=== PATIENT | female | born 1935 | race Caucasian/White ===

== ENCOUNTER 2017-08-02 09:09 | Inpatient (IN) | payer MEDICARE, MEDICAID ==
[~2017-08-02] VITALS: Ht 137.2 cm; Wt 54.0 kg
[2017-08-02] MEDS ORDERED: SODIUM CHLORIDE 0.9% 1,000 ML IV ONE (09:26)
[2017-08-02 09:56] LABS: BASOPHILS % 1.1 % (0.0-2.0); EOSINOPHILS % 4.4 % (0.0-5.0); HEMATOCRIT. 39.2 % (36.0-48.0); HEMOGLOBIN. 12.8 g/dL (12.0-16.0); LYMPHOCYTES % 23.6 % (20.0-50.0); MEAN CORPUSCULAR HEMOGLOBIN 30.4 pg (28.0-32.0); MEAN CORPUSCULAR VOLUME 93.5 fL (81.0-99.0); MONOCYTES % 9.9 % (2.0-8.0); PLATELET 325 x1000/uL (130-400); RED CELL DISTRIBUTION WIDTH 13.8 % (11.6-14.6)
[2017-08-02 10:00] LABS: INR 1.1; PROTHROMBIN TIME 11.3 sec (9.4-11.6)
[2017-08-02 10:06] LABS: AMMONIA 28 uMol/L (<32)
[2017-08-02 10:10] LABS: CARBON DIOXIDE 25 mEq/L (21-32); CHLORIDE 105 mEq/L (98-107); ETHANOL BLOOD < 10 mg/dL; TROPONIN I < 0.02 ng/mL (0.00-0.04)
[2017-08-02 10:19] LABS: CLARITY URINE CLEAR (CLEAR); COLOR URINE DARK YELLOW (YELLOW); GLUCOSE URINE NEGATIVE (NEGATIVE); KETONES URINE TRACE (NEGATIVE); LEUKOCYTE ESTERASE URINE 2+ (NEGATIVE); NITRITE URINE NEGATIVE (NEGATIVE); OCCULT BLOOD URINE NEGATIVE (NEGATIVE); PROTEIN URINE NEGATIVE (NEGATIVE); SPECIFIC GRAVITY URINE 1.027 (1.005-1.030); UROBILINOGEN URINE 0.2 E.U./dL (0.2-1.0)
[2017-08-02] MEDS ORDERED: CEFTRIAXONE 1 G PREMIX 50 ML IV ONE (10:45)
[2017-08-02 10:55] LABS: *AMPHETAMINES SCREEN URINE NEGATIVE (NEGATIVE); *BARBITURATES SCREEN URINE NEGATIVE (NEGATIVE); *BENZODIAZEPINES SCREEN URINE PRESUMTIVE POSITIVE (NEGATIVE); *COCAINE SCREEN URINE NEGATIVE (NEGATIVE); CANNABINOID URINE SCREEN NEGATIVE (NEGATIVE); METHADONE URINE SCREEN NEGATIVE (NEGATIVE); OPIATES URINE SCREEN PRESUMTIVE POSITIVE (NEGATIVE); PHENCYCLIDINE URINE SCREEN NEGATIVE (NEGATIVE)
[2017-08-02 13:45] VITALS: BP 139/65
[2017-08-02 14:28] VITALS: BP 134/74
[2017-08-02] MEDS: ASPIRIN 81MG TABLET PO SCH (15:04)
[2017-08-02] MEDS ORDERED: LORA1TAB PO (15:32)
[2017-08-02] MEDS ORDERED: SERT25TA74 PO (15:32)
[2017-08-02] MEDS ORDERED: PANT40TA4 PO (15:32)
[2017-08-02] MEDS ORDERED: [UNRECOGNIZED DRUG - CODE] PO (15:32)
[2017-08-02] MEDS ORDERED: DONE5TAB33 PO (15:32)
[2017-08-02] MEDS ORDERED: DIXL10 PO (15:32)
[2017-08-02] MEDS ORDERED: CEPH250C2 PO (15:32)
[2017-08-02] MEDS ORDERED: MECL-109 PO (15:32)
[2017-08-02] MEDS ORDERED: ATOR20TA65 PO (15:32)
[2017-08-02] MEDS ORDERED: GABA-531 PO (15:32)
[2017-08-02] MEDS ORDERED: ATEN-42 PO (15:32)
[2017-08-02 16:00] VITALS: BP 121/67
[2017-08-02] MEDS ORDERED: PNEUMOCOCCAL 23-VAL P-SAC VAC 0.5 ML IM ONE (17:00)
[2017-08-02] MEDS ORDERED: INFLUENZA VIRUS VACCINE 0.5ML SYR IM ONE (17:00)
[2017-08-02] MEDS ORDERED: MECLIZINE 25MG TABLET PO PRN (18:15)
[2017-08-02 20:00] VITALS: BP 109/56
[2017-08-02] MEDS: SERTRALINE HCL 50MG TABLET PO SCH (20:45)
[2017-08-02] MEDS: ATORVASTATIN CALCIUM 20MG TABLET PO SCH (21:42)
[2017-08-02] MEDS: METOPROLOL TARTRATE 25MG TABLET PO SCH (21:42)
[2017-08-02] MEDS: GABAPENTIN 300MG CAPSULE PO SCH (21:42)
[2017-08-02] MEDS: DONEPEZIL HCL 5MG TABLET PO SCH (21:42)
[2017-08-03] VITALS: BP 139/74
[2017-08-03 04:00] VITALS: BP 120/55
[2017-08-03] MEDS: GABAPENTIN 300MG CAPSULE PO SCH ×3 (06:08→22:03)
[2017-08-03] MEDS: PANTOPRAZOLE 40MG DR TABLET PO SCH (06:08)
[2017-08-03 08:00] VITALS: BP 130/63
[2017-08-03] MEDS: SERTRALINE HCL 50MG TABLET PO SCH (09:18)
[2017-08-03] MEDS: METOPROLOL TARTRATE 25MG TABLET PO SCH ×2 (09:18→21:00)
[2017-08-03] MEDS: ASPIRIN 81MG TABLET PO SCH (09:18)
[2017-08-03 12:00] VITALS: BP 125/95
[2017-08-03] MEDS ORDERED: CEFTRIAXONE 1 G PREMIX 50 ML IV SCH (15:00)
[2017-08-03 17:00] VITALS: BP 128/57
[2017-08-03 17:56] LABS: AMMONIA < 25 uMol/L (<32)
[2017-08-03 18:05] LABS: T4 FREE 1.28 ng/dL (0.76-1.46)
[2017-08-03 18:26] LABS: FOLIC ACID (FOLATE) SERUM 19.7 ng/mL (>5.38)
[2017-08-03 20:16] VITALS: BP 105/63
[2017-08-03] MEDS ORDERED: LORAZEPAM 1MG TABLET PO PRN (21:45)
[2017-08-03] MEDS: ATORVASTATIN CALCIUM 20MG TABLET PO SCH (22:01)
[2017-08-03] MEDS: DONEPEZIL HCL 5MG TABLET PO SCH (22:01)
[2017-08-04] VITALS: BP 116/75
[2017-08-04 04:00] VITALS: BP 149/73
[2017-08-04] MEDS: GABAPENTIN 300MG CAPSULE PO SCH (06:09)
[2017-08-04] MEDS: PANTOPRAZOLE 40MG DR TABLET PO SCH (06:09)
[2017-08-04 08:00] VITALS: BP 146/70
[2017-08-04] MEDS: ASPIRIN 81MG TABLET PO SCH (10:02)
[2017-08-04] MEDS: SERTRALINE HCL 50MG TABLET PO SCH (10:02)
[2017-08-04] MEDS: METOPROLOL TARTRATE 25MG TABLET PO SCH (10:04)
[2017-08-04 12:00] VITALS: BP 125/67
[2017-08-04] MEDS ORDERED: ASPI-1160 PO (13:10)
[2017-08-04] MEDS ORDERED: NITR-87 PO (13:10)
[2017-08-04 14:24] VITALS: BP 125/67
== END 2017-08-04 15:20 | disposition home or self-care (01) | DRG 689 ==
LOC: ER 09:21 → 5WST 10:47 → ENRESERV 12:42
PROVIDERS: ADMIT Internal Medicine; ATTEND Internal Medicine
DX: N39.0 Urinary tract infection, site not specified (principal); G92 Toxic encephalopathy; F03.90 Unspecified dementia, unspecified severity, without behavioral disturbance, psychotic disturbance, mood disturbance, and anxiety; I35.0 Nonrheumatic aortic (valve) stenosis; E03.9 Hypothyroidism, unspecified; I44.0 Atrioventricular block, first degree; E78.00 Pure hypercholesterolemia, unspecified; I10 Essential (primary) hypertension; M19.90 Unspecified osteoarthritis, unspecified site; Z79.899 Other long term (current) drug therapy
CPT/HCPCS: 36415; 70450; 70551; 71010; 80053; 80305; 80307; 80329; 81001; 82140; 82607; 82746; 83036; 83605; 83690; 83880; 84439; 84443; 84481; 84484; 85025; 85610; 87086; 90686; 90732; 93005; 93306; 93880; 96365; 99285; G0482; J0696; J7030